=== PATIENT | male | born 1945 | race Caucasian/White ===

== ENCOUNTER 2017-03-17 11:17 | Emergency (ER) | payer OTHER, BC ==
[~2017-03-17] VITALS: Ht 180.3 cm; Wt 81.0 kg
[2017-03-17 12:38] LABS: HEMATOCRIT 42.8 % (38.0-50.0); MCH 30.9 PG (29.0-34.0); MCHC 32.9 G/DL (30.0-36.0); MCV 93.9 FL (86-99); MEAN PLAT.VOLUME 10.5 uM^3 (9.0-12.4); PLATELET COUNT 220 K/uL (156-360); RBC DIS.WIDTH-CV 12.4 % (11.8-14.6); RED BLOOD COUNT 4.56 M/uL (4.00-5.50); WHITE BLOOD COUNT 6.8 K/uL (4.1-10.2)
[2017-03-17 12:58] LABS: TROP-I INTERPRETATION NEGATIVE; TROPONIN-I < 0.01 ng/mL (0.0-0.30)
[2017-03-17 13:12] LABS: CHLORIDE 105 mEq/L (99-109); POTASSIUM 5.3 mEq/L (3.7-5.4); SODIUM 141 mEq/L (136-147)
[2017-03-17 13:14] LABS: GLUCOSE 113 mg/dL (70-99)
[2017-03-17 13:16] LABS: ANION GAP 9 MEQ/L (2-14)
[2017-03-17 13:18] LABS: GFR ESTIMATE (CALCULATED) > 59 mL/min/
[2017-03-17 13:19] LABS: UREA NITROGEN (BUN) 24 mg/dL (9-23)
[2017-03-17 14:43] LABS: TROP-I INTERPRETATION NEGATIVE; TROPONIN-I < 0.01 ng/mL (0.0-0.30)
[2017-03-17 15:18] VITALS: BP 138/78
== END 2017-03-17 15:20 | disposition home or self-care (01) ==
LOC: EME 11:17
PROVIDERS: Emergency Medicine
DX: R07.9 Chest pain, unspecified (principal); E78.5 Hyperlipidemia, unspecified
CPT/HCPCS: 71020; 80048; 84484; 85027; 93005; 99281; 99284